=== PATIENT | male | born 1940 | race Caucasian/White ===

== ENCOUNTER 2019-07-26 13:54 | Emergency (ER) | payer OTHER, MEDICARE ==
[~2019-07-26] VITALS: Ht 177.8 cm; Wt 102.1 kg
[~2019-07-26 13:54] MED LIST: COUMADIN 5 MG TA5 M1 PO; LOVENOX100 MG/1 M SQ; NEURONTIN 300300 M1 PO; NORCO 10-325 T1 EACH PO; VALIUM5 MG PO; VITAMINC500 PO
[2019-07-26] MEDS ORDERED: NORCO 5-325 TA1 EAC1 PO (15:34)
[2019-07-26 16:04] VITALS: BP 109/63
== END 2019-07-26 16:04 | disposition home or self-care (01) ==
LOC: ER 13:54
DX: S42.402A Unspecified fracture of lower end of left humerus, initial encounter for closed fracture (principal); F17.210 Nicotine dependence, cigarettes, uncomplicated; Z85.89 Personal history of malignant neoplasm of other organs and systems; Z86.718 Personal history of other venous thrombosis and embolism; X58.XXXA Exposure to other specified factors, initial encounter; Y93.89 Activity, other specified; Y92.098 Other place in other non-institutional residence as the place of occurrence of the external cause; Y99.8 Other external cause status

== ENCOUNTER 2019-10-07 08:34 | Emergency (ER) | payer OTHER, MEDICARE ==
[~2019-10-07] VITALS: Ht 177.8 cm; Wt 99.8 kg
[~2019-10-07 08:34] MED LIST changes: +NORCO 5-325 TA1 EAC1 PO
[2019-10-07 09:20] LABS: HEMATOCRIT 35.5 % (42.0-52.0); HEMOGLOBIN 11.8 gm/dL (14.0-18.0); MCH 32.1 pg (26.0-34.0); MCHC 33.3 g/dL (28.0-37.0); MCV 96.6 fL (80.0-100.0); RBC 3.68 mil/uL (4.50-6.00); RDW 13.9 % (10.5-14.5); WBC 7.9 thou/uL (4.0-11.0)
[2019-10-07 09:31] LABS: APTT 58.5 Seconds (24.5-32.8); INR 3.9; PROTIME 39.7 Seconds (9.3-11.4)
[2019-10-07 10:16] VITALS: BP 104/61
[2019-10-08] MEDS ORDERED: KEFLEX500 M1 PO ×2 (11:03→11:04)
== END 2019-10-07 10:57 | disposition home or self-care (01) ==
LOC: ER 08:34
PROVIDERS: Emergency Medicine
DX: S20.219A Contusion of unspecified front wall of thorax, initial encounter (principal); M96.830 Postprocedural hemorrhage of a musculoskeletal structure following a musculoskeletal system procedure; F17.210 Nicotine dependence, cigarettes, uncomplicated; Z90.2 Acquired absence of lung [part of]; Z86.718 Personal history of other venous thrombosis and embolism; X58.XXXA Exposure to other specified factors, initial encounter; Y93.89 Activity, other specified; Y92.89 Other specified places as the place of occurrence of the external cause; Y99.8 Other external cause status

== ENCOUNTER 2019-10-08 09:42 | Emergency (ER) | payer OTHER, MEDICARE ==
[~2019-10-08] VITALS: Ht 177.8 cm; Wt 99.8 kg
[2019-10-08 10:45] LABS: HEMATOCRIT 33.6 % (42.0-52.0); HEMOGLOBIN 11.2 gm/dL (14.0-18.0); MCH 32.2 pg (26.0-34.0); MCHC 33.4 g/dL (28.0-37.0); MCV 96.2 fL (80.0-100.0); RBC 3.49 mil/uL (4.50-6.00); RDW 14.1 % (10.5-14.5)
[2019-10-08 10:57] LABS: INR 3.2; PROTIME 33.4 Seconds (9.3-11.4)
[2019-10-08] MEDS ORDERED: KEFLEX500 M1 PO ×2 (11:03→11:04)
[2019-10-08 11:28] VITALS: BP 143/76
== END 2019-10-08 11:25 | disposition home or self-care (01) ==
LOC: ER 09:42
PROVIDERS: Emergency Medicine
DX: L76.22 Postprocedural hemorrhage of skin and subcutaneous tissue following other procedure (principal); F17.210 Nicotine dependence, cigarettes, uncomplicated; Z79.899 Other long term (current) drug therapy; Z79.01 Long term (current) use of anticoagulants; Z86.711 Personal history of pulmonary embolism; Z86.718 Personal history of other venous thrombosis and embolism; Z85.831 Personal history of malignant neoplasm of soft tissue; Y83.8 Other surgical procedures as the cause of abnormal reaction of the patient, or of later complication, without mention of misadventure at the time of the procedure

== ENCOUNTER 2019-10-12 08:17 | Emergency (ER) | payer OTHER, MEDICARE ==
[~2019-10-12] VITALS: Ht 177.8 cm; Wt 99.8 kg
[~2019-10-12 08:17] MED LIST changes: +KEFLEX500 M1 PO
[2019-10-12] MEDS ORDERED: ENOXAPARIN100 MG/1 M SUBQ (08:40)
[2019-10-12 09:34] LABS: HEMATOCRIT 34.8 % (42.0-52.0); HEMOGLOBIN 11.8 gm/dL (14.0-18.0)
[2019-10-12 09:36] LABS: PROTIME 13.6 Seconds (9.3-11.4)
[2019-10-12 09:37] LABS: INR 1.3
[2019-10-12 10:02] VITALS: BP 101/66
== END 2019-10-12 10:03 | disposition home or self-care (01) ==
LOC: ER 08:17
PROVIDERS: Emergency Medicine
DX: L76.32 Postprocedural hematoma of skin and subcutaneous tissue following other procedure (principal); T87.81 Dehiscence of amputation stump; F17.210 Nicotine dependence, cigarettes, uncomplicated; Z79.01 Long term (current) use of anticoagulants; Z98.890 Other specified postprocedural states; Z86.718 Personal history of other venous thrombosis and embolism; Y92.89 Other specified places as the place of occurrence of the external cause

== ENCOUNTER 2021-05-27 08:29 | Emergency (ER) | payer OTHER, MEDICARE ==
[~2021-05-27] VITALS: Ht 167.6 cm; Wt 68.0 kg
[~2021-05-27 08:29] MED LIST changes: +ENOXAPARIN100 MG/1 M SUBQ
[2021-05-27] MEDS ORDERED: DOXYCYCLINE 10100 MG PO (09:28)
[2021-05-27 09:49] VITALS: BP 124/76
== END 2021-05-27 09:50 | disposition home or self-care (01) ==
LOC: ER 08:29
DX: L02.31 Cutaneous abscess of buttock (principal); F17.210 Nicotine dependence, cigarettes, uncomplicated; Z98.890 Other specified postprocedural states